=== PATIENT | female | born 1945 | race Caucasian/White ===

== ENCOUNTER → 2020-09-09 13:04 | Outpatient (CLI) | payer MEDICARE, OTHER, SELFPAY ==
[2020-07-15 14:08] VITALS: BMI 33.8
--- NOTE | 2020-09-09 13:08 | ECHODONC_ITS ---
Version 2 Reason For Study: PAF, monitoring for chemotherapy Procedure This was a 2D Doppler, Color Flow transthoracic echocardiogram. Myocardial strain analysis was performed in this exam to aid in the assessment of cardiac function. Exam performed in department. Left Ventricle Normal LV size. Sigmoid septum. Left ventricular systolic function is normal. The estimated ejection fraction is 60 %. Stage 1 diastolic dysfunction. No regional wall motion abnormalities noted. Right Ventricle Normal RV size. Normal systolic function. Atria Normal left atrium. Normal right atrium. Mitral Valve Normal mitral valve. Tricuspid Valve Normal tricuspid valve. Mild tricuspid valve insufficiency. Pulmonary artery systolic pressure is 28 mmHg. Aortic Valve Trisinus/trileaflet aortic valve. Pulmonic Valve Normal pulmonic valve. Great Vessels Normal aortic root. The pulmonary artery is normal size. Normal inferior vena cava. Pericardium/Pleural No pericardial effusion. MMode/2D Measurements & Calculations LVIDd: 5.3 cm IVSd: 0.87 cm Ao root diam: 3.0 cm LVIDs: 3.8 cm LVPWd: 0.92 cm RVDd: 3.3 cm FS: 28.6 % LAV(MOD-bp): 54.7 ml LA A4 area: 16.7 cm2 LA dimension(2D): 3.7 cm LAV(MOD-bp) Indexed: 30.6 ml/m2 LAV(MOD-sp2): 60.8 ml LAV(MOD-sp4): 46.9 ml RA A4 area: 12.7 cm2 Time Measurements MV dec time: 0.23 sec Doppler Measurements & Calculations MV E max denzel: 55.6 cm/sec Lat Peak E' Denzel: 6.6 cm/sec Med Peak E' Denzel: 6.4 cm/sec MV A max denzel: 78.5 cm/sec E/E' lat: 8.4 E/E' med: 8.7 MV E/A: 0.71 Ao V2 max: 125.0 cm/sec LV V1 max: 107.9 cm/sec PA V2 max: 111.1 cm/sec Ao max P.2 mmHg LV V1 max P.7 mmHg PI dec slope: 200.0 cm/sec2 TR max denzel: 246.5 cm/sec TR max P.3 mmHg Interpretation Summary Normal LV size. Left ventricular systolic function is normal. The estimated ejection fraction is 60 %. Sigmoid septum. Stage 1 diastolic dysfunction. Pulmonary artery systolic pressure is 28 mmHg. The global longitudinal strain is normal. The global longitudinal strain = -22 % (normal). Ordering Physician: Yuri Leroy Referring Physician: Lalo Carrasco Performed By: Bella Bronson RDCS, RVT
== END ==
PROVIDERS: PCP Family Medicine; Referring Provider Internal Medicine Hematology & Oncology; Visit Provider Internal Medicine Hematology & Oncology
DX: I48.0 Paroxysmal atrial fibrillation (principal)
CPT/HCPCS: 93306; 93356

== ENCOUNTER → 2021-10-29 | Outpatient (CLI) | payer MEDICARE, OTHER, SELFPAY | END | disposition home or self-care (01) | LOC: PSN 12:09 | PROVIDERS: PCP Family Medicine; Referring Provider Nurse Practitioner Gerontology; Visit Provider Nurse Practitioner Gerontology | DX: R55 Syncope and collapse (principal) | CPT/HCPCS: 93225; 93226 ==

== ENCOUNTER 2021-11-06 10:00 | Outpatient (RCR) | payer MEDICARE, OTHER, SELFPAY ==
--- NOTE | 2021-09-29 09:59 | HP.PTEVAL ---
Patient's Visit Information ELINOR MCKEON is a 76 year old F referred to Physical Therapy by Dr. Lalo Carrasco MD with a diagnosis of LUMBAR RADICULOPATHY. Date of Evaluation: 09/29/21 Physical Therapist: Ramsey Leal PT, Cert MDT, OCS - Visit Plan Frequency: 2x /Week Duration: 4 Weeks Plan: PRECATION: LYMPHOMA. PT INTERVETIONS DLS ,POSTURAL EX'S LUMBAR FLEXION AND POSTURE TRAINING - Subjective This 76 y/o female presents to physical therapy with lumbar radiculopathy. Patient lumbar radiculopathy fell about ~ 1year then eventually had back pain provided prednisone which helped to reduce symptoms. Symptoms become worse and past 3 weeks noticed increase pain in legs . Patient had MRI showed stenosis ,DDD ,spurs ,anteriorlothesis grade 2 , bulging disc and r/o some type of cancer. Patient has lymphoma last year currently monitor blood work. Location buttock and left leg to anterior foot. Aggravating factors walking ,standing bending, sitting. Alleviating factors rest. No meds. Denies paresthesia/tingling c/o cramping in leg. Coughing/sneezing -, Bowel/bladder-. Patient sleeping okay at night. Patient pain affects affects housework tasks and QOL. SOCIAL: . VOACTION: retired - Pain Bilateral Back Pain Intensity (Out of 10): 1 Pain Intensity Range: 10 Left Lower Extremity Pain Intensity (Out of 10): 6 Pain Intensity Range: 10 - Objective POSTURE: mild forward posture. GAIT: reciprocal pattern. SYMMTRIES: Align. MMT: quads/hams 4/5,hip flexion 4-/5 ,ankle 5/5. FLEXABILITY: hamstrings min tight. LUMBAR ROM: flexion WFL, extension min loss ,side glides min loss - Special Tests L/S Slump test left side: Negative L/S Slump test right side: Negative L/S Left Straight Leg Raise: Negative L/S Right Straight Leg Raise: Negative Lumbar Standing: Flexion - Mechanical Response: No effect Lumbar Standing: Flexion - Symptoms During Testing: No effect Lumbar Standing: Flexion - Symptoms After Testing: No effect Lumbar Standing: Extension - Symptoms During Testing: No effect Lumbar Standing: Extension - Symptoms After Testing: No effect Lumbar Standing: Right Side Glides - Mechanical Response: No effect Lumbar Standing: Right Side [place] - Symptoms During Testing: No effect Lumbar Standing: Right Side [place] - Symptoms After Testing: No effect Lumbar Standing: Left Side [place] - Mechanical Response: No effect Lumbar Standing: Left Side [place] - Symptoms During Testing: No effect Lumbar Standing: Left Side [place] - Symptoms After Testing: No effect Lumbar Lying: Flexion - Mechanical Response: No effect Lumbar Lying: Flexion - Symptoms During Testing: Decreases Lumbar Lying: Flexion - Symptoms After Testing: Better Comments:: NT - Balance/Special Test Scores Oswestry Low Back Score: 27 - Goals Goal 1:: Patient to be I with HEP Goal Time Frame: 4-6 Weeks Goal 2:: Patient to improve posture for ADLS 90 % of the time Goal Time Frame: 4-6 Weeks Goal 3:: Patient to demonstrate 50% improvement with improve function with less symptoms Goal Time Frame: 4-6 Weeks Goal 4:: Patient to improve lumbar ROM for function of recovery to perform housework tasks Goal Time Frame: 4-6 Weeks Goal 5:: Patient to improve back oswestry score by 5 points or> to improve QOL Goal Time Frame: 4-6 Weeks - Rehabilitation Potential Physical Therapy Diagnosis: This patient underwent s/p lumbar radiculopathy to stenosis ,retrolothesis ,HNP left causing pain in legs worse left leg worse with walking and standing thus will benefit from skilled PT Rehabilitation Potential: Excellent - Anticipated Interventions Patient/Client Instruction: Educate patient on: Condition, Plan of Care For the Purpose of:: To decrease pain, To increase ROM, To improve muscle performance and motor function, To improve ability to perform ADL's, To increase tolerance to activity/condition/position, To improve performance and independence with ADL's, To improve ability of physical actions for home/community/work/leisure, To improve health of tissue, To decrease soft tissue restriction, To increase flexibility/ROM Therapeutic Exercise to Include: Strength training, Endurance training, Body mechanics, Postural training, Flexibilty training, Dynamic Lumbar Stabilization For the Purpose of:: To decrease pain, To increase ROM, To improve muscle performance and motor function, To increase tolerance to activity/condition/position, To improve performance and independence with ADL's, To improve ability of physical actions for home/community/work/leisure, To improve health of tissue, To decrease soft tissue restriction, To increase flexibility/ROM Thank you for the opportunity to evaluate your patient. For Medicare and Medicare HMO plans, please review the plan of care and approve it. It will need to be FAXED BACK to us at [phone] for Medicare purposes. For Medicare only, by signing this I certify the plan of care. Please let me know if there are questions or concerns regarding this plan of care. Physician Signature: Date:
--- NOTE | 2021-11-06 10:47 | HP.PTDCSUM ---
It has been my pleasure to treat ELINOR MCKEON referred by Dr. Lalo Carrasco MD, with the diagnosis of LUMBAR RADICULOPATHY for a total of 9 visit(s). Discharge Date: 11/06/21 Please see the following information for a summary of their discharge status. Subjective: Doing ready for d/c Bilateral Back Pain Intensity (Out of 10): 1 Left Lower Extremity Pain Intensity (Out of 10): 0 % Improvement: 60 Objective/Function: POSTURE:WFL. GAIT: NORNAL LANCE. MMT: 4/5. LUMBAR ROM: WFL FLEXION ,EXTENSION MIN Goal 1:: Patient to be I with HEP Goal Progress: Goal Met Goal 2:: Patient to improve posture for ADLS 90 % of the time Goal 3:: Patient to demonstrate 50% improvement with improve function with less symptoms Goal Progress: Goal Met Goal 4:: Patient to improve lumbar ROM for function of recovery to perform housework tasks Goal Progress: Goal Met Goal 5:: Patient to improve back oswestry score by 5 points or> to improve QOL Goal Progress: Goal Met Plan: D/C Discharge Comments: HEP If there are questions or concerns regarding this patient's physical therapy, please feel free to call me at [phone]. Thank you for the referral of this patient. Sincerely, Ramsey Leal PT, Cert MDT, OCS Balance/Gait/Functional tests - Balance/Special Test Scores Oswestry Low Back Score: 0
== END 2021-11-06 19:00 | disposition home or self-care (01) ==
LOC: PT 10:00
PROVIDERS: PCP Family Medicine; Referring Provider Family Medicine; Visit Provider Family Medicine
DX: M54.16 Radiculopathy, lumbar region (principal)
CPT/HCPCS: 97110; 97162

== ENCOUNTER → 2021-12-07 | Outpatient (CLI) | payer MEDICARE, OTHER, SELFPAY ==
[2021-12-07 13:42] LABS: ALB/GLOB Ratio 1.2 RATIO (0.9-2.4); AST(SGOT) 20 U/L (15-37); Alanine Aminotransfer ALT/SGPT 22 U/L (13-56); Albumin, Serum 3.7 g/dL (3.2-5.0); Alkaline Phosphatase 78 U/L (45-117); Anion Gap 5 (5-15); BUN 23 mg/dL (7-18); BUN/Creat Ratio 18.1 RATIO (10-20); Calcium,Total 9.2 mg/dL (8.5-10.1); Chloride 106 mmol/L (98-107); Creatinine, Serum 1.27 mg/dL (0.55-1.02); EST Glomerular Filtration Rate 44 mL/min (>60); Est Glom Filt Rate - Afr Amer 53 mL/min (>60); Globulin 3.1 g/dL (2.2-4.2); Glucose 98 mg/dL (74-106); Potassium 3.8 mmol/L (3.5-5.1); Protein, Total 6.8 g/dL (6.4-8.2); Sodium Level 140 mmol/L (136-145)
== END | disposition home or self-care (01) ==
LOC: LABSPEC 12:30
PROVIDERS: PCP Family Medicine; Visit Provider Internal Medicine Hematology & Oncology
DX: C83.10 Mantle cell lymphoma, unspecified site (principal)
CPT/HCPCS: 80053

== ENCOUNTER 2023-07-05 11:30 | Outpatient (RCR) | payer MEDICARE, OTHER, SELFPAY ==
--- NOTE | 2023-05-04 14:29 | HP.PTEVAL_ITS ---
Patient's Visit Information Visit Information Visit Information: ELINOR MCKEON is a 77 year old F referred to Physical Therapy by Dr. Guzman Dove MD with a diagnosis of LBP with radiculopathy. Date of Evaluation: 05/04/23 Physical Therapist: Ted Amanda, PT, ATC Visit Plan Frequency: 2-3x /Week Duration: 4-6 Weeks Plan: Postural edu, core stab ex's in neutral, SKTC/DKTC when rod, nustep, and HEP Subjective Subjective: Pt reports she has had a chronic Hx of LBP. Pt reports she believes this episode started when she carried bags of salt down her steps and put them into her water softener . Pt reports the pain started 2-3 days after this occurred and became very debilitating. Pt reports she has had recent x-rays that reveled degenerative changes throughout her Lumbar spine. Pt reports she has had R LE radiculopathy that extends to her knee region, but none today. Pt reports she feels better today than usual because her doctor put her on pain meds which helped to decrease her pain and alleviate her R LE radiculopathy. Pt reports occasional sleep difficulty secondary to pain. Pt is retired at this time. 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 Pt reports most activity will cause her pain. 0/10 pain while sitting here at rest, 10/10 pain at worst. Pt has stairs at home and negotiates them one step at a time on occasion. Pain LBP: Pain Intensity (Out of 10): 0 Pain Intensity Range: 10 Objective Objective: Neuro: B LE sensation is WNL to light touch. B patellar reflex= 2/3 ROM: Pt is severely limited with L/S ext and bilateral side bend. Flexion is WNL MMT: B LE's are grossly rated at 4/5 throughout Repeated movements: Prone prop on elbows intantly produces B LE radiculopathy. SKTC/DKTC produced central LBP. Pt felt better after the movement. Balance/Special Test Scores Oswestry Low Back Score: 14 Goals Goal 1:: Decrease LBP x 50% to aid with sleep Goal Time Frame: 4-6 Weeks Goal 2:: Decrease the frequency and intensity of R LE radiculopathy x 25% to aid with IADL's Goal Time Frame: 4-6 Weeks Goal 3:: I with HEP Goal Time Frame: 4-6 Weeks Goal 4:: Increase B LE strength x 1 grade to aid with IADL's Goal Time Frame: 4-6 Weeks Rehabilitation Potential Physical Therapy Diagnosis: Pt has intermittent R LE radiculopathy, LBP, and limited L/S ROM secondary to degenerative changes in the L/S Rehabilitation Potential: Good Anticipated Interventions Patient/Client Instruction: Educate patient on: Condition and Plan of Care For the Purpose of:: To improve self management Therapeutic Exercise to Include: Strength training, Endurance training, Balance training, Body mechanics, Active ROM and Dynamic Lumbar Stabilization For the Purpose of:: To decrease pain, To increase ROM and To improve muscle performance and motor function Text: Thank you for the opportunity to evaluate your patient. For Medicare and Medicare HMO plans, please review the plan of care and approve it. It will need to be FAXED BACK to us at [phone] for Medicare purposes. For Medicare only, by signing this I certify the plan of care. Please let me know if there are questions or concerns regarding this plan of care. Physician Signature: Date:
--- NOTE | 2023-09-29 15:33 | HP.PTDCSUM ---
Discharge Summary D/C summary: It has been my pleasure to treat ELINOR MCKEON referred by Dr. Guzman Dove MD, with the diagnosis of LBP with radiculopathy for a total of 8 visit(s). Discharge Date: Please see the following information for a summary of their discharge status. Subjective Subjective: I dont have any pain today Pain LBP: Pain Intensity (Out of 10): 0 Overall Improvement % Improvement: 100 Objective Objective/Function: 0/10 LBP this date No LE radiculopathy B LE MMT 5/5 throughout I with HEP Goals Goal 1:: Decrease LBP x 50% to aid with sleep Goal Progress: Goal Met Goal 2:: Decrease the frequency and intensity of R LE radiculopathy x 25% to aid with IADL's Goal Progress: Goal Met Goal 3:: I with HEP Goal Progress: Goal Met Goal 4:: Increase B LE strength x 1 grade to aid with IADL's Goal Progress: Goal Met Plan Plan: Discharge to [facility] D/C Information d/c sentence: If there are questions or concerns regarding this patient's physical therapy, please feel free to call me at [phone]. Thank you for the referral of this patient. Sincerely, Ted mAanda, PT, ATC Balance/Gait/Functional tests Balance/Special Test Scores Oswestry Low Back Score: 14 Improvement % Improvement: 100
== END 2023-07-05 19:00 | disposition home or self-care (01) ==
LOC: PT 11:30
PROVIDERS: PCP Family Medicine; Referring Provider Family Medicine; Visit Provider Family Medicine
DX: M54.16 Radiculopathy, lumbar region (principal)
CPT/HCPCS: 97110; 97161; 97164

== ENCOUNTER → 2023-10-14 | Outpatient (CLI) | payer MEDICARE, OTHER, SELFPAY | END | disposition home or self-care (01) | LOC: PSN 08:29 | PROVIDERS: PCP Family Medicine; Referring Provider Nurse Practitioner Gerontology; Visit Provider Nurse Practitioner Gerontology | DX: I48.0 Paroxysmal atrial fibrillation (principal); I49.3 Ventricular premature depolarization; R55 Syncope and collapse | CPT/HCPCS: 93225; 93226 ==

== ENCOUNTER → 2023-12-20 | Outpatient (CLI) | payer MEDICARE, OTHER, SELFPAY ==
[2023-12-20 11:55] LABS: Anion Gap 3 (5-15); BUN 24 mg/dL (7-18); BUN/Creat Ratio 18.5 RATIO (10-20); Calcium,Total 8.5 mg/dL (8.5-10.1); Chloride 106 mmol/L (98-107); EST Glomerular Filtration Rate 42 mL/min (>60); Est Glom Filt Rate - Afr Amer 51 mL/min (>60); Glucose 100 mg/dL (74-106); Potassium 4.3 mmol/L (3.5-5.1); Sodium Level 139 mmol/L (136-145)
== END | disposition home or self-care (01) ==
LOC: LAB 11:15
PROVIDERS: PCP Family Medicine; Referring Provider Nurse Practitioner Gerontology; Visit Provider Nurse Practitioner Gerontology
DX: R06.09 Other forms of dyspnea (principal)
CPT/HCPCS: 36415; 80048; 83880

== ENCOUNTER 2024-03-31 14:06 | Emergency (ER) | payer MEDICARE, OTHER, SELFPAY ==
[2024-03-31 14:07] VITALS: BP 117/70; PULSE 65; RESP 18; TEMP 36.6; O2SAT 98; BMI 37.1
[2024-03-31 14:14] VITALS: BP 138/78; PULSE 78; RESP 16; TEMP 36.8; O2SAT 98
[2024-03-31 14:57] VITALS: BP 114/53; PULSE 57; RESP 16; TEMP 36.6; O2SAT 99
--- NOTE | 2024-03-31 15:02 | ED.VIS.LOWEX ---
HPI History of Present Illness HPI Narrative: 78-year-old female history of mantle cell lymphoma recent tumor lysis syndrome, history of A-fib and CHF. Recently had a prolonged hospitalization at the [facility]. States she has been home about a week. She went from a 30 pound weight gain 10 out of 10 she seems to be losing the fluid. She is on Lasix 80 mg a day currently. Says her legs are improving but she noticed redness on both sides and wanted evaluated. No pain. No fever or chills. She is currently on Levaquin every other day to prevent infection. Bilateral lower extremity swelling which she has had for some time. Mild redness. No fever. Chief Complaint: Edema Informant: patient and spouse/S.O. Occured/Mechanism Mechanism/Context: No injury and No blunt trauma Onset/Context/Timing Onset: Weeks Context: Gradual Onset Timing: Continuous Current Severity: Mild Maximum Severity: Mild Associated Symptoms Associated Symptoms: Negative for Parasthesia, Weakness or Loss of Funtion Narrative Narrative: 78-year-old female history of mantle cell lymphoma with recent tumor lysis syndrome and hospitalization to [facility]. Has had leg swelling from peripheral edema. Has a history of A-fib. The swelling is actually improving with Lasix. She is also losing water weight. She feels well. She does notice redness to her legs and wanted evaluated. Denies any significant leg pain. Prior similar symptoms: Yes Recent Illness/Hospitalization: Yes PFSH [facility] Medical History Multiple premature ventricular complexes Chronic diastolic (congestive) heart failure Meningioma Mantle cell lymphoma (08/2020) COVID-19 (04/15/21) Secondary pulmonary arterial hypertension Nonobstructive atherosclerosis of coronary artery Paroxysmal atrial fibrillation Essential hypertension Hypersomnia Diverticulitis Obesity GERD (gastroesophageal reflux disease) Dysphagia Cough Asthma Allergic rhinitis Home Medications ?Medication ?Instructions ?Recorded ?Last Taken ?Type multivitamin,gy-nmyu-eeccyure 1 tab PO QDAY 06/02/17 Unknown History (Complete Multivitamin tablet) lansoprazole 30 mg capsule,delayed 30 mg PO QDAY 06/07/17 Unknown History release spironolactone 25 mg tablet 25 mg PO QDAY 06/07/17 Unknown History fluticasone propionate 50 2 spray intranasal DAILY 04/12/19 Unknown History mcg/actuation nasal spray,suspension (Allergy Relief (fluticasone)) calcium ER 600 mg (as carb,cit)-D3 2 tab PO BID 05/26/21 Unknown History 12.5 mcg (500 unit) tablet, ext.rel (Citracal-D3 Slow Release) diphenhydramine HCl 25 mg capsule 25 mg PO QHS PRN 05/26/21 Unknown History (Benadryl) fexofenadine 180 mg tablet 180 mg PO DAILY 05/26/21 Unknown History (Colleen Allergy) montelukast 10 mg tablet 10 mg PO QHS 05/26/21 Unknown History (Singulair) vitamin B complex 1 tab PO DAILY 07/28/21 Unknown History losartan 50 mg-hydrochlorothiazide 1 tab PO QDAY #60 tabs 11/27/21 Unknown Rx 12.5 mg tablet acyclovir 400 mg tablet 400 mg PO BID 01/15/22 Unknown History zanubrutinib 80 mg capsule 160 mg PO BID 01/15/22 Unknown History (Brukinsa) apixaban 5 mg tablet (Eliquis) 5 mg PO BID Send to [facility] not 08/11/23 Unknown Rx [facility] d/t pt benefit #180 tabs Allergy/AdvReac Type Severity Reaction Status Date / Time No Known Allergies Allergy Verified 12/20/23 11:01 Family History Father Diabetes Colonic polyp Hypertension Mother Diabetes Alzheimer disease Hypertension Sister Hypertension Diabetes Grandmother Myocardial infarction Grandfather Heart disease Surgical History History of craniotomy (2005) History of cardioversion History of left heart catheterization (02/2014) H/O tubal ligation History of carpal tunnel release Social History Smoking Status: Former smoker Electronic Cigarette Use: not used how long ago did patient quit smokin second hand exposure: No alcohol intake: current alcohol intake frequency: holidays/special occasions only substance use type: does not use caffeine: Yes Type: coffee Number of servings: 3 ROS ROS ED ROS Narrative Denies recent illness. Denies fever or chills. Constitutional Constitutional ED: Denies chills or fever(s) Eyes Eyes: Denies blurry vision ENT ENT ED: Denies ear pain Cardiovascular Cardiovascular: Denies chest pain Respiratory/Chest Respiratory/Chest: Denies cough Gastrointestinal Gastrointestinal: Denies abdominal pain Genitourinary Genitourinary ED: Denies dysuria Musculoskeletal Musculoskeletal: Denies arthralgias Integumentary Denies abscess Neurologic Neurologic: Denies headache(s) Psychiatric Psychiatric: Denies anxiety or depression Endocrine Endocrinology: Denies polydipsia Hematologic/Lymphatic Hematologic/Lymphatic: Denies easy bleeding or easy bruising Allergic/Immunologic Allergic/Immunologic ED: Denies mouth swelling or tongue swelling EXAM Physical Exam Narrative Exam Narrative: Well-appearing 78-year-old female. Sitting upright in bed. Vital signs stable afebrile. Oral temperature 98. Pulse ox 98% on room air no hypoxia. No distress. at bedside. H EENT exam unremarkable. Neck nontender no JVD. Lungs clear to auscultation bilaterally. Heart irregularly irregular rate about 60 consistent with A-fib. Abdomen is soft and nontender. Moving all 4 extremities. 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 Normal dorsi plantarflexion. She has 2+ pitting edema both lower extremities. Are equal and symmetrical. She has mild redness to her anterior lower legs. It is not hot. Is not tender. This appears to be venous stasis changes or chronic skin changes and not acute cellulitis. She is awake and alert no focal motor deficits. Const Vital Signs: 03/31/24 14:07 03/31/24 14:14 03/31/24 14:52 Temperature 98 F 98.3 F Temperature Source Oral Oral Pulse Rate 65 78 Respiratory Rate 18 16 Respiratory Effort Normal Non-Labored Respiratory Pattern Normal Blood Pressure 117/70 138/78 H Blood Pressure Mean 85 98 Pulse Ox 98 98 Oxygen Delivery Method Room Air Room Air 03/31/24 14:57 Temperature 98 F Temperature Source Pulse Rate 57 L Respiratory Rate 16 Respiratory Effort Respiratory Pattern Blood Pressure 114/53 L Blood Pressure Mean 73 Pulse Ox 99 Oxygen Delivery Method Positive well nourished and well developed; Negative for cachectic, contractures or unkempt General Appearance ED: well developed; Negative for unkempt, cachectic or contractures Nutritional Appearance: Negative for cachectic HEENT Reports moist mucous membranes normocephalic and atraumatic; Negative for trauma or tenderness Eyes PERRL Neck full ROM and supple Thyroid: Negative for tender Lymph Lymphatic: Negative for other Chest Wall inspection of chest normal and palpation of chest normal Resp normal respiratory effort, no retractions and clear to auscultation bilaterally Cardio regular rate, S1 normal heart sound, S2 normal heart sound and no murmurs; Negative for regular rhythm Cardio Narrative: A-fib rate about 60. Rhythm: abnormal rhythm GI non-tender, non-distended and no masses Palpation: soft; Negative for tender, guarding or rebound tenderness present Back/Spine no CVA tenderness Extremity full ROM; Negative for normal to inspection Extremity Narrative: Bilateral 2+ pitting edema both lower extremities. Mildly red anteriorly. Not tender. Does not appear to be cellulitis. Appears to be venous stasis changes or chronic skin changes due to edema. Feet are neurovascularly intact. No cords. Equal and symmetrical. General Extremety ED: Yes edema General Extremity: edema Neuro oriented x3, CN's II-XII intact bilaterally and moves all extremities Sensorium / Orientation: alert, oriented to person, oriented to place and oriented to time; Negative for orientation impaired, confused, lethargic or stuporous Motor Exam: strength 5/5 throughout; Negative for general weakness or strength abnormal Psych mental status grossly normal Appearance: Negative for unkempt Speech: No other Skin no wounds Lesions: no lesions MDM MDM MDM Narrative Medical decision making narrative: 78-year-old female history of peripheral edema. Has a history of CHF, A-fib and T-cell lymphoma. She is actually improving. She was hospitalized for tumor lysis syndrome. She has been on Lasix. She went from a 30 pound weight gain down to currently a 20 pound weight gain. Her legs are improving. They noticed some redness. She is having no pain or fever. No chills. Exam is consistent with venous stasis changes. No acute infection. She is currently on Levaquin. I do not think she needs any further testing. She has had recent venous studies of the lower extremity showing no DVT down the [facility]. I reviewed her labs from earlier this week. Her creatinine is around 1.3. I do not think the patient needs any labs or imaging today. I told her for her more comfortably happy to get screening labs and compared her most recent labs she had done earlier in the week. They are comfortable no labs being done. They will continue her Lasix. Elevate her legs. And outpatient follow-up. Discharge Plan Triage Chief Complaint: Edema ED Provider: Prateek Conway Dx/Rx/DC Orders Clinical Impression: History of peripheral edema, History of atrial fibrillation, History of heart failure, History of lymphoma Instructions: ED Peripheral Edema, Bilateral Prescriptions: No Action lansoprazole 30 mg capsule,delayed release(DR/EC) 30 mg PO QDAY spironolactone 25 mg tablet 25 mg PO QDAY montelukast [Singulair] 10 mg tablet 10 mg PO QHS multivitamin,[id number] [Complete Multivitamin] tablet 1 tab PO QDAY calcium carb, citrate-vit D3 [Citracal-D3 Slow Release] 600 mg-12.5 mcg (500 unit) tablet extended release 2 tab PO BID fluticasone propionate [Allergy Relief (fluticasone)] 50 mcg/actuation spray,suspension 2 spray INTRANASAL DAILY fexofenadine [Colleen Allergy] 180 mg tablet 180 mg PO DAILY diphenhydramine HCl [Benadryl] 25 mg capsule 25 mg PO QHS PRN vitamin B complex Tablet 1 tab PO DAILY acyclovir 400 mg tablet 400 mg PO BID Brukinsa 80 mg capsule 160 mg PO BID Rx Instructions: 2 tabs qam, 2 tabs qpm losartan-hydrochlorothiazide 50-12.5 mg tablet 1 tab PO QDAY Qty: 60 0RF Eliquis 5 mg tablet 5 mg PO BID Qty: 180 3RF Primary Care Provider: Lalo Carrasco Referrals: Lalo Carrasco MD [Primary Care Provider] - As Needed Activity Restrictions/Additional Instructions: Elevate your legs to decrease swelling. Continue your Lasix. Follow-up with your doctors as needed. Right now this does not look like cellulitis. If skin color changes consistent with peripheral edema. If you get a fever or bad chills or it is looking a lot worse or becoming painful then you need to be reevaluated. Print Language: Tamazight Disposition Disposition: Home, Self Care
== END 2024-03-31 15:13 | disposition home or self-care (01) ==
LOC: ED 15:06
PROVIDERS: Emergency Provider Emergency Medicine; PCP Family Medicine; Visit Provider Emergency Medicine
DX: I11.0 Hypertensive heart disease with heart failure (principal); I50.32 Chronic diastolic (congestive) heart failure; I48.0 Paroxysmal atrial fibrillation; I25.10 Atherosclerotic heart disease of native coronary artery without angina pectoris; Z79.01 Long term (current) use of anticoagulants; Z79.899 Other long term (current) drug therapy; Z85.72 Personal history of non-Hodgkin lymphomas; Z86.16 Personal history of COVID-19; Z87.891 Personal history of nicotine dependence
CPT/HCPCS: 99282; A4216